=== PATIENT | female | born 1950 | race Caucasian/White ===

== ENCOUNTER 2021-11-24 14:13 | Inpatient (IN) ==
[2021-11-24 15:27] LABS: Basophils # 0.1 K/mcL (0.0-0.2); Basophils % 1.3 %; Eosinophils # 0.1 K/mcL (0.0-0.6); Eosinophils % 1.2 %; Hematocrit 30.6 % (35.3-44.9); Hemoglobin 9.5 g/dL (11.5-15.4); Immature Granulocytes % 0.4 % (0-4); Lymphocytes # 1.5 K/mcL (0.6-4.6); Lymphocytes % 20.1 %; Mean Corpuscular Hemoglobin 27.1 pg (28.0-33.3); Mean Corpuscular Volume 87.4 fL (83.0-100.0); Mean Platelet Volume 11.3 fL (9.4-12.4); Monocytes # 0.8 K/mcL (0.0-1.3); Monocytes % 10.1 %; Neutrophils # 5.1 K/mcL (1.6-8.9); Platelet Count 207 K/mcL (140-400); Red Cell Distribution Width 14.8 % (11.5-14.5); Segmented Neutrophils % 66.9 %; White Blood Count 7.7 K/mcL (4.3-11.1)
[2021-11-24 15:50] LABS: BUN/Creatinine Ratio 23 (6-26); Blood Urea Nitrogen 91 mg/dL (8-23); Calcium 9.8 mg/dL (8.6-10.3); Carbon Dioxide 26 mEq/L (23-29); Chloride 95 mEq/L (98-107); Glucose 331 mg/dL (70-105); Osmolality,Calculated 319 (280-300); Potassium 4.8 mEq/L (3.5-5.1); Sodium 134 mEq/L (136-145); Troponin I < 0.03 ng/mL (< 0.04); eGFR For African Americans 14 (> 60); eGFR For Non-African Americans 11 (> 60)
[2021-11-24 16:34] LABS: Bilirubin,Urine Negative (Negative); Blood,Urine Trace-lysed (Negative); Clarity,Urine Clear (Clear); Color,Urine Yellow (Yellow); Glucose,Urine (UA) 100 mg/dL (Normal); Ketones,Urine Negative (Negative); Leukocyte Esterase,Urine Small (Negative); Nitrite,Urine Negative (Negative); PH,Urine 5.5 pH Units (5.0-8.0); Protein,Urine 100 mg/dL (Neg-Trace); Specific Gravity,Urine 1.025 (1.010-1.025); Urobilinogen,Urine Normal (Normal)
[2021-11-24 16:46] LABS: Bacteria,Urine Moderate per hpf (None-Few); RBC,Urine 0-3 per hpf (0-3); Squamous Epithelial Cell,Urine Few per hpf (None-Few); Transitional Epi Cells,Urine Few per hpf (None-Few)
[2021-11-24] MEDS ORDERED: cefTRIAXone 1,000 MG in 0.9 % Sodium Chloride 10 ML IVP ONE (17:07)
[2021-11-24] MEDS: 0.9 % Sodium Chloride 1,000 ML IV ONE (18:00)
[2021-11-24] MEDS ORDERED: Naloxone 0.4 MG/ML INJ IVP PRN (19:43)
[2021-11-24] MEDS ORDERED: Melatonin 3 MG TABLET PO PRN (19:43)
[2021-11-24] MEDS ORDERED: Ondansetron 4 MG/2 ML VIAL IVP PRN (19:43)
[2021-11-24] MEDS ORDERED: D5% in Water 1,000 ML IVC PRN (19:52)
[2021-11-24] MEDS ORDERED: *HR* Dextrose 50 % in Water (Syg) 50 ML SYRINGE IVP PRN (19:52)
[2021-11-24] MEDS ORDERED: Dextrose 4 GM Chewable Tablets PO PRN ×2 (19:52)
[2021-11-24] MEDS: 0.9 % Sodium Chloride 1,000 ML IVC SCH (22:34)
[2021-11-24] MEDS: cefTRIAXone 1,000 MG in 0.9 % Sodium Chloride 10 ML IVPB SCH (22:35)
[2021-11-25] MEDS: Insulin LISPRO 300 UNITS/3 ML VIAL SUBQ SCH ×5 (00:30→20:10)
[2021-11-25 00:48] LABS: Calcium 8.8 mg/dL (8.6-10.3); Potassium 3.9 mEq/L (3.5-5.1)
[2021-11-25] MEDS ORDERED: Nitroglycerin 0.4 MG TAB.SUBL SL PRN (01:00)
[2021-11-25 04:57] LABS: Hematocrit 27.1 % (35.3-44.9); Hemoglobin 8.4 g/dL (11.5-15.4); Mean Corpuscular Hemoglobin 26.7 pg (28.0-33.3); Mean Platelet Volume 11.4 fL (9.4-12.4); Platelet Count 199 K/mcL (140-400); Red Blood Count 3.15 M/mcL (3.82-4.97); Red Cell Distribution Width 14.7 % (11.5-14.5); White Blood Count 7.9 K/mcL (4.3-11.1)
[2021-11-25 05:11] LABS: % Iron Saturation 7 % (15-50); Iron 28 mcg/dL (50-170); Transferrin 292 mg/dL (203-362)
[2021-11-25] MEDS: 0.9 % Sodium Chloride 1,000 ML IVC SCH ×2 (07:26→16:32)
[2021-11-25] MEDS: carvediloL 25 MG TABLET PO SCH ×2 (08:49→16:32)
[2021-11-25] MEDS: cefTRIAXone 1,000 MG in 0.9 % Sodium Chloride 10 ML IVPB SCH (08:49)
[2021-11-25] MEDS: Aspirin Enteric Coated 81 MG Tablet PO SCH (08:49)
[2021-11-25] MEDS: calcitrioL 0.25 MCG CAPSULE PO SCH (08:49)
[2021-11-25] MEDS: Iron Sucrose Complex 250 MG in 0.9 % Sodium Chloride 250 ML IVPB SCH (08:49)
[2021-11-25] MEDS: Apixaban 2.5 MG TABLET PO SCH ×2 (08:49→20:10)
[2021-11-25 08:53] LABS: Hepatitis B Surface Antigen Nonreactive (Nonreactive)
[2021-11-25 09:22] LABS: Hepatitis B Core IgM Nonreactive (Nonreactive); Hepatitis C Virus Antibody Nonreactive (Nonreactive)
[2021-11-25 09:23] LABS: Hepatitis A Antibody IgM Nonreactive (Nonreactive)
[2021-11-25 10:22] LABS: Estimated Average Glucose 183 mg/dl
[2021-11-25] MEDS: Acetaminophen 325 MG TABLET PO PRN (11:11)
[2021-11-25 11:37] LABS: Magnesium 1.6 mg/dL (1.6-2.6); Uric Acid 14.1 mg/dL (2.3-7.6)
[2021-11-25] MEDS: hydrALAZINE 25 MG TABLET PO SCH ×2 (16:32→20:10)
[2021-11-25] MEDS: Insulin DETEMIR 100 UNIT/ML X5UNITS SUBQ SCH (20:09)
[2021-11-26] MEDS: 0.9 % Sodium Chloride 1,000 ML IV ONE (03:21)
[2021-11-26 07:18] LABS: Sodium, Urine 77.1 mEq/L
[2021-11-26] MEDS: cefTRIAXone 1,000 MG in 0.9 % Sodium Chloride 10 ML IVPB SCH (08:35)
[2021-11-26] MEDS: Iron Sucrose Complex 250 MG in 0.9 % Sodium Chloride 250 ML IVPB SCH (08:36)
[2021-11-26] MEDS: Apixaban 2.5 MG TABLET PO SCH ×2 (08:36→20:42)
[2021-11-26] MEDS: hydrALAZINE 25 MG TABLET PO SCH ×3 (08:36→20:42)
[2021-11-26] MEDS: carvediloL 25 MG TABLET PO SCH ×2 (08:36→16:44)
[2021-11-26] MEDS: calcitrioL 0.25 MCG CAPSULE PO SCH (08:36)
[2021-11-26] MEDS: Aspirin Enteric Coated 81 MG Tablet PO SCH (08:36)
[2021-11-26] MEDS: Isosorbide MONOnitrate (24 HR) 30 MG TAB.ER.24H PO SCH (08:36)
[2021-11-26] MEDS: Insulin LISPRO 300 UNITS/3 ML VIAL SUBQ SCH ×4 (08:37→20:30)
[2021-11-26 08:44] LABS: Potassium 3.3 mEq/L (3.5-5.1)
[2021-11-26] MEDS: Acetaminophen 325 MG TABLET PO PRN (08:49)
[2021-11-26] MEDS ORDERED: Ergocalciferol (VIT D2) 50,000 UNIT (1.25MG) CAP PO SCH (09:00)
[2021-11-26 16:33] LABS: Protein/Creatinine Ratio,Urine 1.82 mg/mg (0.00-0.20)
[2021-11-26] MEDS: Insulin DETEMIR 100 UNIT/ML X5UNITS SUBQ SCH (20:42)
[2021-11-27] MEDS: Aspirin Enteric Coated 81 MG Tablet PO SCH (07:57)
[2021-11-27] MEDS: carvediloL 25 MG TABLET PO SCH ×2 (07:57→16:48)
[2021-11-27] MEDS: Isosorbide MONOnitrate (24 HR) 30 MG TAB.ER.24H PO SCH (07:57)
[2021-11-27] MEDS: calcitrioL 0.25 MCG CAPSULE PO SCH (07:58)
[2021-11-27] MEDS: Apixaban 2.5 MG TABLET PO SCH (07:58)
[2021-11-27] MEDS: cefTRIAXone 1,000 MG in 0.9 % Sodium Chloride 10 ML IVPB SCH (07:58)
[2021-11-27] MEDS: hydrALAZINE 25 MG TABLET PO SCH ×3 (07:58→21:06)
[2021-11-27] MEDS: Insulin LISPRO 300 UNITS/3 ML VIAL SUBQ SCH ×4 (08:00→21:05)
[2021-11-27] MEDS: Iron Sucrose Complex 250 MG in 0.9 % Sodium Chloride 250 ML IVPB SCH (13:17)
[2021-11-27 15:05] LABS: Hematocrit 25.6 % (35.3-44.9); Hemoglobin 8.1 g/dL (11.5-15.4); Mean Corpuscular HGB Conc 31.6 g/dL (31.6-35.5); Mean Corpuscular Volume 88.6 fL (83.0-100.0); Mean Platelet Volume 11.6 fL (9.4-12.4); Platelet Count 171 K/mcL (140-400); Red Blood Count 2.89 M/mcL (3.82-4.97); Red Cell Distribution Width 14.8 % (11.5-14.5); White Blood Count 7.9 K/mcL (4.3-11.1)
[2021-11-27 15:35] LABS: Calcium 9.1 mg/dL (8.6-10.3); Potassium 3.5 mEq/L (3.5-5.1)
[2021-11-27] MEDS: Apixaban 5 MG TABLET PO SCH (21:05)
[2021-11-27] MEDS: Insulin DETEMIR 100 UNIT/ML X5UNITS SUBQ SCH (21:06)
[2021-11-28 06:16] LABS: Calcium 9.2 mg/dL (8.6-10.3); Potassium 3.6 mEq/L (3.5-5.1)
[2021-11-28] MEDS: Apixaban 5 MG TABLET PO SCH ×2 (10:21→22:56)
[2021-11-28] MEDS: carvediloL 25 MG TABLET PO SCH ×2 (10:21→16:12)
[2021-11-28] MEDS: Aspirin Enteric Coated 81 MG Tablet PO SCH (10:21)
[2021-11-28] MEDS: Insulin LISPRO 300 UNITS/3 ML VIAL SUBQ SCH ×5 (10:21→22:54)
[2021-11-28] MEDS: Isosorbide MONOnitrate (24 HR) 30 MG TAB.ER.24H PO SCH (10:21)
[2021-11-28] MEDS: calcitrioL 0.25 MCG CAPSULE PO SCH (10:21)
[2021-11-28] MEDS: hydrALAZINE 25 MG TABLET PO SCH ×3 (10:21→22:55)
[2021-11-28] MEDS: cefTRIAXone 1,000 MG in 0.9 % Sodium Chloride 10 ML IVPB SCH (10:22)
[2021-11-28] MEDS: Iron Sucrose Complex 250 MG in 0.9 % Sodium Chloride 250 ML IVPB SCH (10:23)
[2021-11-28] MEDS: Albumin 25% 25gram/100mL 25 GM/100 ML IV.SOLN IVPB SCH ×2 (13:53→22:56)
[2021-11-28] MEDS ORDERED: Morphine Sulfate Oral CONC 10 MG/0.5 ML ORAL.SYG SL PRN (20:26)
[2021-11-28] MEDS: Insulin DETEMIR 100 UNIT/ML X5UNITS SUBQ SCH (22:55)
[2021-11-29 06:00] LABS: Hematocrit 23.5 % (35.3-44.9); Hemoglobin 7.3 g/dL (11.5-15.4)
[2021-11-29 06:13] LABS: Calcium 9.5 mg/dL (8.6-10.3); Magnesium 1.4 mg/dL (1.6-2.6); Phosphorous 3.4 mg/dL (2.7-4.5); Potassium 3.3 mEq/L (3.5-5.1)
[2021-11-29] MEDS: Albumin 25% 25gram/100mL 25 GM/100 ML IV.SOLN IVPB SCH ×3 (06:21→20:44)
[2021-11-29] MEDS: carvediloL 25 MG TABLET PO SCH ×2 (08:19→16:46)
[2021-11-29] MEDS: Apixaban 5 MG TABLET PO SCH ×2 (08:19→20:20)
[2021-11-29] MEDS: Isosorbide MONOnitrate (24 HR) 30 MG TAB.ER.24H PO SCH (08:19)
[2021-11-29] MEDS: calcitrioL 0.25 MCG CAPSULE PO SCH (08:19)
[2021-11-29] MEDS: Aspirin Enteric Coated 81 MG Tablet PO SCH (08:19)
[2021-11-29] MEDS: hydrALAZINE 25 MG TABLET PO SCH ×3 (08:19→20:20)
[2021-11-29] MEDS: Insulin LISPRO 300 UNITS/3 ML VIAL SUBQ SCH ×4 (08:20→20:38)
[2021-11-29] MEDS ORDERED: cefTRIAXone 1,000 MG in Water for inj. (sterile) 10 ML IVP SCH (09:00)
[2021-11-29] MEDS: Iron Sucrose Complex 250 MG in 0.9 % Sodium Chloride 250 ML IVPB SCH (09:42)
[2021-11-29] MEDS: Insulin DETEMIR 100 UNIT/ML X5UNITS SUBQ SCH (20:37)
[2021-11-30 02:47] LABS: Hematocrit 24.5 % (35.3-44.9); Hemoglobin 7.6 g/dL (11.5-15.4)
[2021-11-30 03:12] LABS: Calcium 10.1 mg/dL (8.6-10.3); Magnesium 1.9 mg/dL (1.6-2.6); Potassium 3.7 mEq/L (3.5-5.1)
[2021-11-30] MEDS: Albumin 25% 25gram/100mL 25 GM/100 ML IV.SOLN IVPB SCH ×2 (04:41→15:18)
[2021-11-30 07:25] VITALS: PULSE 83; TEMP 98.6
[2021-11-30] MEDS: Insulin LISPRO 300 UNITS/3 ML VIAL SUBQ SCH ×2 (07:42→11:47)
[2021-11-30] MEDS: carvediloL 25 MG TABLET PO SCH (07:50)
[2021-11-30] MEDS: Aspirin Enteric Coated 81 MG Tablet PO SCH (07:50)
[2021-11-30] MEDS: hydrALAZINE 25 MG TABLET PO SCH ×2 (07:50→15:17)
[2021-11-30] MEDS: calcitrioL 0.25 MCG CAPSULE PO SCH (07:50)
[2021-11-30] MEDS: Isosorbide MONOnitrate (24 HR) 30 MG TAB.ER.24H PO SCH (07:50)
[2021-11-30] MEDS: Apixaban 5 MG TABLET PO SCH (07:51)
[2021-11-30 11:36] VITALS: BP 148/71; O2SAT 93
== END 2021-11-30 17:38 | disposition home or self-care (01) | DRG 683 ==
LOC: EMEROOARM 14:13 → 2ANU 14:13 → SUATTDRO 19:47 → 2ANU 20:57 → SUATTDRO 11-26 13:34
PROVIDERS: ADMIT Internal Medicine; ATTEND Internal Medicine